=== PATIENT | female | born 1935 | race Hispanic/Latino ===

== ENCOUNTER 2021-08-05 13:45 | Emergency (ER) | payer OTHER, BC ==
--- OUTSIDE RECORDS SUMMARY | 2021-08-05 13:50 | XMS REPORT | Continuity of Care Document ---
:1935 Author Organization [facility] t Address [facility] [address] Mccoy [address] [place] [id number] Care Team Providers Name Role Phone A_Byrd Attending Clinician Unavailable Hawkins_M Attending Clinician Unavailable A_Byrd Admitting Clinician Unavailable Hawkins_M Admitting Clinician Unavailable Payers Payer Name Policy Type Policy Number Effective Date Expiration Date S luisa [place] [id number] 1999 [employer] 00:00:00 [place] [facility] [id number] 2015-08-13 EMPLOYEE PROGRAM 00:00:00 [place]: [id number] 1999-08-13 [place] 00:00:00 FORMERLY [facility] [place] [id number] 2015-08-13 [place] (PP[place]) 00:00:00 Problems Condition Condition Condition Status Onset Resolution Last Treating Co mments Source Name Details Category Date Date Treatment Clinician Date Hypothyroi Hypothyroi Problem Active [facility] 9-16 da 00:00: Medical 00 Group Allergies, Adverse Reactions, Alerts Allergy Allergy Status Severity Reaction(s) Onset Inactive Treating Comm ents Source Name Type Date Date Clinician Peanut Allergy Active [place] Social History Smoking Status Start Date Stop Date Source Never Smoker [facility] Medications Ordered Filled Start Stop Current Ordering Indication Dosage Frequency Signature Comments Components Source Medication Medication Date Date Medication? Clinician (SIG) Name Name levothyroxi levothyroxi No 1 Q2D levothyrox [place] [facility] 25 mcg ne 25 mcg ine 25 mcg da tablet Take tablet Take tablet Medical 1 tablet 1 tablet Take 1 Group every other every other tablet day by oral day by oral every route. route. other day by oral route. levothyroxi levothyroxi No 1 Q2D levothyrox [place] [facility] 50 mcg ne 50 mcg ine 50 mcg da tablet Take tablet Take tablet Medical 1 tablet 1 tablet Take 1 Group every other every other tablet day by oral day by oral every route. route. other day by oral route. Vital Signs Vital Name Observation Time Observation Value Comments Source BP Diastolic 2021-04-28 00:00:00 57 mm[Hg] [facility] BP Systolic 2021-04-28 00:00:00 166 mm[Hg] [facility] Body Weight 2021-04-28 00:00:00 1222 [oz_av] [facility] BP Systolic 2021-04-05 00:00:00 151 mm[Hg] [facility] Body Weight 2021-04-05 00:00:00 1248 [oz_av] [facility] BP Diastolic 2021-04-05 00:00:00 58 mm[Hg] [facility] Procedures This patient has no known procedures. Plan of Care Planned Activity Planned Date Details Comments Source Diagnostic Test 2021-04-28 TSH, serum or [facility] Pending 00:00:00 plasma [code = Group TSH, serum or plasma] Future Appointment 2021-10-26 [facility] 00:[facility]:00 [facility] [address], [place] [address] Encounters Start End Encounter Admission Attending Care Care Encounter Source Date/Time Date/Time Type Type Clinicians Facility Department ID 2021-04-28 2021-04-28 Outpatient Srinivasan_Drake [facility] [id number] [facility] 04:02:00 04:02:00 [facility] 2021-04-28 2021-04-28 Santos Juarez MM [place] - [id number] [facility] 00:00:00 00:00:00 MD Drake: [facility] [address] [place] [address] [address], [facility] [address] , Ph. 2021-04-11 2021-04-11 [place] [id number] -2020 [place] 01:01:00 01:01:00 [facility] 2021-04-11 2021-04-11 [place] [id number] -2020 [place] 01:01:00 01:01:00 [facility] 2021-04-05 2021-04-05 Outpatient Hawkins_M MMG MMG [id number] -2020 [place] 05:34:00 05:34:00 [facility] 2021-04-05 2021-04-05 Outpatient Hawkins_M MMG MMG [id number] -2020 [place] 05:34:00 05:34:00 [facility] 2021-04-05 2021-04-05 [place] [id number] -2020 [place] 05:34:00 05:34:00 [facility]25 [facility] 2021-04-05 2021-04-05 Outpatient Hawkins_M MMG MMG [id number] -2020 [place] 05:34:00 05:34:00 [facility]26 [facility] 2021-04-05 2021-04-05 [place] [id number] -2020 [place] 05:34:00 05:34:00 0828 [facility] 2021-04-05 2021-04-05 [facility] [place] - [id number] [facility] 00:00:00 00:00:00 [facility] [employer]: [address] [facility] [facility] [address], [place] [address] , Ph. Results Test Description Test Time Test Comments Results Result Comments Source SARS-CoV-2 (COVID-19) RNA [Presence] in Respiratory sp ecimen by 2021-04-08 00:00:00 KRIS with probe detection Test Item Value Reference Range Interpretation Comme nts SARS-CoV-2 (COVID-19) RNA [Presence] in Respiratory not detected no t detected specimen by KRIS with probe detection (test code = 81455-8) [facility]Presence] in Respiratory specimen by KRIS with probe [id number] 00:00:00 Test Item Value Reference Range Interpretation Comments SARS-CoV-2 (COVID-19) RNA not detected not detected [Presence] in Respiratory specimen by KRIS with probe detection (test code = 86736-4) [facility]
--- NOTE | 2021-08-05 17:02 | EDPHYS ---
Physician Documentation [facility] Name: Melania Khan Age: 85 yrs Sex: Female : 1935 Arrival Date: 08/05/2021 Time: 13:52 Bed DIS2 Private MD: Lynda Bazan ED Physician Lynda Gutiérrez HPI: 08/05 16:56 This 85 yrs old Female presents to ER via Ambulatory with complaints of Hand jr8 Injury. 16:56 Associated signs and symptoms: The patient has no apparent associated signs or jr8 symptoms. Severity of symptoms: At their worst the symptoms were very mild, in the emergency department the symptoms are unchanged. The patient has not experienced similar symptoms in the past. The patient has not recently seen a physician. Patient stated that she was cleaning her bird cage. Her bird tried to bite her. Withdrew her hand quickly out of the cage causing her to hit left wrist. Has had bruising with hematoma since incident. Historical: - Allergies: 14:03 Peanuts; ss - Immunization history:: Client reports receiving the 2nd dose of the Covid vaccine. - Social history:: Smoking status: Patient denies any tobacco usage or history of. ROS: 16:59 Eyes: Negative for injury, pain, redness, and discharge, ENT: Negative for injury, jr8 pain, and discharge, Neck: Negative for injury, pain, and swelling, Cardiovascular: Negative for chest pain, palpitations, and edema, Respiratory: Negative for shortness of breath, cough, wheezing, and pleuritic chest pain, Abdomen/GI: Negative for abdominal pain, nausea, vomiting, diarrhea, and constipation, Back: Negative for injury and pain, Skin: Negative for injury, rash, and discoloration, Neuro: Negative for headache, weakness, numbness, tingling, and seizure. 16:59 MS/extremity: Positive for ecchymosis, of the right hand and wrist. Exam: 16:59 Constitutional: This is a well developed, well nourished patient who is awake, alert, jr8 and in no acute distress. Cardiovascular: Regular rate and rhythm with a normal S1 and S2. No gallops, murmurs, or rubs. Normal PMI, no JVD. No pulse deficits. Respiratory: Lungs have equal breath sounds bilaterally, clear to auscultation and percussion. No rales, rhonchi or wheezes noted. No increased work of breathing, no retractions or nasal flaring. Skin: Warm, dry with normal turgor. Normal color with no rashes, no lesions, and no evidence of cellulitis. Neuro: Awake and alert, GCS 15, oriented to person, place, time, and situation. Cranial nerves II-XII grossly intact. Motor strength 5/5 in all extremities. Sensory grossly intact. 16:59 Musculoskeletal/extremity: Extremities: grossly normal except: noted in the right hand and wrist: Patient has small hematoma to the medial wrist with bruising extending up the side of the hand and down the wrist. Patient has full ROM present without pain to palpation or movement. Pulses 2+ radial with normal sensation . Vital Signs: 14:00 BP 143 / 52; Pulse 57; Resp 16; Temp 97.6(TE); Pulse Ox 99% on R/A; Weight 36.29 kg; ss Height 4 ft. 10 in. (147.32 cm); Pain 0/10; 17:20 BP 176 / 68; Pulse 54; Resp 16; Pulse Ox 99% ; ll1 14:00 Body Mass Index 16.72 (36.29 kg, 147.32 cm) ss MDM: 16:14 Patient medically screened. jr8 16:59 Data reviewed: vital signs, nurses notes, and as a result, I will discharge patient. jr8 Data interpreted: Pulse oximetry: on room air is 99 %. Interpretation: normal. Counseling: I had a detailed discussion with the patient and/or guardian regarding: the historical points, exam findings, and any diagnostic results supporting the discharge/admit diagnosis, the need for outpatient follow up, a family practitioner, to return to the emergency department if symptoms worsen or persist or if there are any questions or concerns that arise at home. ED course: Discussed with patient that there is no need for imaging based on mechanism and physical exam findings. Patient good with this and will f/u with PCP if needed . Administered Medications: No medications were administered Disposition Summary: 08/05/21 17:02 Discharge Ordered Location: Home jr8 Problem: new jr8 Symptoms: have improved jr8 Condition: Stable jr8 Diagnosis - Contusion of right wrist jr8 Followup: jr8 - With: Private Physician - When: As needed - Reason: Recheck today's complaints, Continuance of care, Re-evaluation by your physician Discharge Instructions: - Discharge Summary Sheet jr8 - Contusion jr8 Forms: - Medication Reconciliation Form jr8 - Thank You Letter jr8 - Antibiotic Education jr8 - Prescription Opioid Use jr8 Addendum: 08/07/2021 18:50 Co-signature as Attending Physician, Lynda Gutiérrez MD. m a2 Signatures: Sanam Argueta RN RN ss Osbaldo Dodson PA PA jr8 Lynda Gutiérrez MD MD ma2
--- NOTE | 2021-08-05 17:02 | ER ---
Nurse's Notes [facility] Name: Melania Khan Age: 85 yrs Sex: Female : 1935 Arrival Date: 08/05/2021 Time: 13:52 Bed DIS2 Private MD: Lynda Bazan Diagnosis: Contusion of right wrist Presentation: 08/05 14:00 Chief complaint: Patient states: Hit R hand on a bird cage yesterday. Pt denies pain, ss but is concerned because she has bruising. Coronavirus screen: Client denies travel out of the [place] in the last 14 days. Ebola Screen: Patient denies exposure to infectious person. Patient denies travel to an Ebola-affected area in the 21 days before illness onset. Initial Sepsis Screen: Does the patient meet any 2 criteria? No. Patient's initial sepsis screen is negative. Does the patient have a suspected source of infection? No. Patient's initial sepsis screen is negative. Risk Assessment: Do you want to hurt yourself or someone else? Patient reports no desire to harm self or others. Onset of symptoms was August 04, 2021. 14:00 Method Of Arrival: Ambulatory ss 14:00 Acuity: DEA 5 ss Triage Assessment: 16:36 General: Appears in no apparent distress. Behavior is calm, cooperative, appropriate ll1 for age. Injury Description: Bruise. Historical: - Allergies: 14:03 Peanuts; ss - Immunization history:: Client reports receiving the 2nd dose of the Covid vaccine. - Social history:: Smoking status: Patient denies any tobacco usage or history of. Screenin:36 Abuse screen: Denies threats or abuse. Nutritional screening: No deficits noted. ll1 Tuberculosis screening: No symptoms or risk factors identified. Fall Risk Ambulatory Aid- Crutches/Cane/Walker (15 pts). Total Howard Fall Scale indicates No Risk (0-24 pts). Assessment: 16:35 General: Appears in no apparent distress. Behavior is calm, cooperative, appropriate ll1 for age. Pain: Denies pain. Derm: Bruising that is on right hand Reports bruise R hand. Musculoskeletal: Circulation, motion, and sensation intact. Capillary refill < 3 seconds, Range of motion: intact in all extremities, Tenderness present in right hand Reports pain in right hand. 17:21 Reassessment: No changes from previously documented assessment. Patient and/or family ll1 updated on plan of care and expected duration. Pain level reassessed. Patient is alert, oriented x 3, equal unlabored respirations, skin warm/dry/pink. Vital Signs: 14:00 BP 143 / 52; Pulse 57; Resp 16; Temp 97.6(TE); Pulse Ox 99% on R/A; Weight 36.29 kg; Height 4 ft. 10 in. (147.32 cm); Pain 0/10; 17:20 BP 176 / 68; Pulse 54; Resp 16; Pulse Ox 99% ; ll1 14:00 Body Mass Index 16.72 (36.29 kg, 147.32 cm) ED Course: 13:52 Patient arrived in ED. mr 13:52 Lynda Bazan MD is Private Physician. mr 14:03 Triage completed. ss 14:03 Arm band placed on right wrist. ss 16:11 Patient placed in an exam room, on a stretcher. ll1 16:14 [facility]bal[facility] Dodson [facility] 16:14 Lynda Gutiérrez MD is Attending Physician. jr8 16:35 Kamini Logan RN is Primary Nurse. ll1 16:36 Patient has correct armband on for positive identification. Bed in low position. Call ll1 light in reach. Side rails up X 1. Cardiac monitoring not applicable on this patient. 16:36 No provider procedures requiring assistance completed. Patient did not have IV access ll1 during this emergency room visit. Administered Medications: No medications were administered Outcome: 17:02 Discharge ordered by . [facility] 17:21 Discharged to home ambulatory. ll1 17:21 Condition: stable 17:21 Discharge instructions given to patient, Instructed on discharge instructions, follow up and referral plans. Demonstrated understanding of instructions, follow-up care. 17:22 Patient left the ED. ll1 Signatures: Danii Rodriguez mr Sanam Argueta, JT WATERS Osbaldo Dodson PA PA jr8 Kamini Logan RN RN ll1
[2021-08-05 17:26] VITALS: TEMP 97.6; O2SAT 99
[2021-08-05 17:28] VITALS: BP 176/68
== END 2021-08-05 17:22 | disposition home or self-care (01) ==
LOC: ER 13:45
DX: S60.211A Contusion of right wrist, initial encounter (principal); W22.8XXA Striking against or struck by other objects, initial encounter; Z91.010 Allergy to peanuts
CPT/HCPCS: 99281

== ENCOUNTER 2022-09-14 18:12 | Emergency (ER) | payer OTHER, BC ==
--- OUTSIDE RECORDS SUMMARY | 2022-09-14 18:22 | XMS REPORT | Continuity of Care Document ---
:1935 Author Organization [facility] t Address [address] [place] [address] [address] [place] [address] Care Team Providers Name Role Phone Asked, No Pcp Primary Care Physician Unavailable Deepak SAMPSON, Ton Martin Attending Clinician [phone] Kobjla_A Attending Clinician Unavailable A_Byrd Attending Clinician Unavailable Hawperri_M Attending Clinician Unavailable Kobjla_A Admitting Clinician Unavailable A_Byrd Admitting Clinician Unavailable Lele_M Admitting Clinician Unavailable Payers Payer Name Policy Type Policy Number Effective Date Expiration Date S luisa [place] [id number] 1999 [employer] 00:00:00 [place] [id number] 2015 EMPLOYEE PROGRAM 00:00:00 [place] [id number] 1999 [employer] 00:00:00 [facility] [place] [id number] 2015 [place] (PPO) 00:00:00 Problems Condition Condition Condition Status Onset Resolution Last Treating Co mments Source Name Details Category Date Date Treatment Clinician Date Hypertensi Hypertensi Disease Active 2022-0 M ethodi on on 11-28 st 00:00: Hospita 00 l Hyperthyro Hyperthyro Disease Active M ethodi idism idism 11-28 st 00:00: Hospita 00 l Subclinica Subclinica Problem Active [facility] [facility] l 9-17 da hyperthyro Hyperthyro 00:00: Me dical idism idism 00 Group Hypothyroi Hypothyroi Problem Active [facility] dism dism 9-16 da 00:00: Medical 00 Group Allergies, Adverse Reactions, Alerts Allergy Allergy Status Severity Reaction(s) Onset Inactive Treating Comm ents Source Name Type Date Date Clinician Peanut Propensi Active Itching Facial Methodi ty to 11-[address] adverse 00:00: Hospita reaction 00 l s to drug Peanut Allergy Active [place] to [facility] substanc [facility] e Group Social History Social Habit Start Date Stop Date Quantity Comments Source History of Light tobacco Scientologist tobacco use smoker Hospital Tobacco use and 2021-11-28 2021-11-28 Smokeless tobacco Me thodist exposure 00:00:00 00:00:00 non-user Hospital Alcohol intake 2021-11-28 2021-11-28 Lifetime Scientologist 00:00:00 00:00:00 non-drinker Hospital (finding) Sex Ass[birth year] At [birth year] Scientologist 00:00:00 00:00:00 Hospital Smoking Status Start Date Stop Date Source Never Smoker [facility] Light tobacco smoker 2021-11-28 00:00:00 [facility] Medications Ordered Filled Start Stop Current Ordering Indication Dosage Frequency Signature Comments Components Source Medication Medication Date Date Medication? Clinician (SIG) Name Name levothyroxi Yes 25ug Take 25 Met hodi ne 4-[address] (SYNTHROID) 19:59: mouth. Hosp angelica 25 mcg 03 l tablet amlodipine amlodipine No amlodipine [place] 2.5 mg 2.5 mg 2.5 mg da tablet tablet tablet Medical Group benzonatate benzonatate No 1capsul Q7H benzonatat [place] 100 mg 100 mg e(s) e 100 mg da capsule capsule capsule Medica l Take 1 Take 1 Take 1 Group capsule capsule capsule every 6-8 every 6-8 every 6-8 hours by hours by hours by oral route oral route oral route as needed. as needed. as needed. levothyroxi levothyroxi No levothyrox [place] ne 25 mcg ne 25 mcg ine 25 mcg da tablet TAKE tablet TAKE tablet Medical 1 TABLET 1 TABLET TAKE 1 Group EVERY OTHER EVERY OTHER TABLET DAY BY ORAL DAY BY ORAL EVERY ROUTE. ROUTE. OTHER DAY BY ORAL ROUTE. levothyroxi levothyroxi No levothyrox [place] ne 50 mcg ne 50 mcg ine 50 mcg da tablet TAKE tablet TAKE tablet Medical 1 TABLET 1 TABLET TAKE 1 Group EVERY OTHER EVERY OTHER TABLET DAY BY ORAL DAY BY ORAL EVERY ROUTE. ROUTE. OTHER DAY BY ORAL ROUTE. molnupiravi molnupiravi No 4capsul Q12H molnupirav [place] r 200 mg r 200 mg e(s) ir 200 mg da capsule capsule capsule Medica l (EUA) Take (EUA) Take (EUA) Take Group 4 capsules 4 capsules 4 capsules every 12 every 12 every 12 hours by hours by hours by oral route oral route oral route for 5 days. for 5 days. for 5 days. Xofluza 40 Xofluza 40 No 1 Q1D Xofluza 40 [place] mg tablet mg tablet mg tablet da Take 1 Take 1 Take 1 Medical tablet tablet tablet Group every day every day every day by oral by oral by oral route. 1 route. 1 route. 1 tab x 1. tab x 1. tab x 1. Zithromax Zithromax No Zithromax [place] Z-Ikrk 250 Z-Kirk 250 Z-Kirk 250 da mg tablet mg tablet mg tablet Medical TAKE 2 TAKE 2 TAKE 2 Group TABLETS TABLETS TABLETS (500 MG) BY (500 MG) BY (500 MG) ORAL ROUTE ORAL ROUTE BY ORAL ONCE DAILY ONCE DAILY ROUTE ONCE FOR 1 DAY FOR 1 DAY DAILY FOR THEN 1 THEN 1 1 DAY THEN TABLET (250 TABLET (250 1 TABLET MG) BY ORAL MG) BY ORAL (250 MG) ROUTE ONCE ROUTE ONCE BY ORAL DAILY FOR 4 DAILY FOR 4 ROUTE ONCE DAYS DAYS DAILY FOR 4 DAYS Vital Signs Vital Name Observation Time Observation Value Comments Source Body Weight 2021-08-26 00:00:00 1280 [oz_av] [facility] BP Diastolic 2021-04-28 00:00:00 57 mm[Hg] [facility] BP Systolic 2021-04-28 00:00:00 166 mm[Hg] [facility] Body Weight 2021-04-28 00:00:00 1222 [oz_av] [facility] BP Systolic 2021-04-05 00:00:00 151 mm[Hg] [facility] Body Weight 2021-04-05 00:00:00 1248 [oz_av] [facility] BP Diastolic 2021-04-05 00:00:00 58 mm[Hg[facility] Systolic blood 2021-11-29 00:57:00 138 mm[Hg] [facility] pressure Diastolic blood 2021-11-29 00:57:00 81 mm[Hg] [facility] pressure Heart rate 2021-11-29 00:57:00 61 /min [facility] Body temperature 2021-11-29 00:57:00 36.5 Mitzi [facility] Respiratory rate 2021-11-29 00:57:00 17 /min [facility] Oxygen saturation in 2021-11-29 00:57:00 99 /min [facility] Arterial blood by Pulse oximetry Body height 2021-11-28 22:48:19 149.9 cm [facility] Body weight 2021-11-28 22:48:19 36.288 kg [facility] BMI 2021-11-28 22:48:19 16.16 kg/m2 [facility] Procedures Procedure Date / Time Performing Clinician Source Performed ECG ED PRELIMINARY 2021-11-29 00:35:34 Ton Soteol [facility] INTERPRETATION [place] XR CHEST 2 VW 2021-11-28 23:31:00 [facility] COMPREHENSIVE METABOLIC 2021-11-28 23:18[facility] PANEL CREATINE KINASE, TOTAL 2021-11-28 23:18:00 [facility] (CPK) TROPONIN, I-STAT 2021-11-28 23:18:00 [facility] B NATRIURETIC PEP, I-STAT 2021-11-28 23:18:00 [facility] ESTIMATED GFR 2021-11-28 23:18:00 Rasheed Herring [facility] CBC WITH PLATELET AND 2021-11-28 23:18:00 Rasheed Herring [facility] DIFFERENTIAL ECG 12-LEAD 2021-11-28 22:51:11 Ton Sotelo [facility] Plan of Care Planned Activity Planned Date Details Comments Source Future Scheduled 2022-07-25 COVID-19 VACCINE (#1) [facility] Test 09:26:08 [code = COVID-19 VACCINE (#1)] Future Scheduled 2022-07-25 65+ P[facility]UMOCOCCAL [facility] Test 09:26:08 VACCINE (1 - PCV) [code = 65+ PNEUMOCOCCAL VACCINE (1 - PCV)] Future Scheduled 2022-07-25 SHINGLES VACCINES (1 Met [facility] Test 09:26:08 of 2) [code = SHINGLES VACCINES (1 of 2)] Future Scheduled 2022-07-25 INFLUENZA VACCINE Method [facility] Test 09:26:08 [code = INFLUENZA VACCINE] Diagnostic Test 2021-08-26 rapid influenza virus Mat [facility] Pending 00:00:00 A + B and SARS CoV + Group SARS CoV 2 Ag panel, IA, upper respiratory specimen [code = rapid influenza virus A + B and SARS CoV + SARS CoV 2 Ag panel, IA, upper respiratory specimen] Encounters Start End Encounter Admission Attending Care Care Encounter Source Date/Time Date/Time Type Type Clinicians Facility Department ID 2021-11-28 2021-11-28 Emergency Deepak, [id number] [facility] 17:43:00 19:59:[address] [facility] 3.430.2.7 Ho spita .[id number] l .8 2021-11-28 2021-11-28 Emergency DEEPAK [facility] 064 [id number] [place] 00:00:00 00:00:[address] 2021-11-28 2021-11-28 Travel [id number] [facility] 00:00:00 00:00:[address] 3.430.2.7 0.2.7.3.698 Ho spita .3.027178 084.8 l .8 2021-08-31 2021-08-31 Outpatient Shi_A [facility] [id number] [place] 10:48:00 10:48:00 0119 Medical Group 2021-08-26 2021-08-26 Taylor Shi_[place] [facility] - [id number] [place] 00:00:00 00:00:00 Discovery Shi 0114 da PA-C: [address] [place] [phone] , Ph. 2021-04-28 2021-04-28 Nelli [place] [facility] [place] - [id number] [place] 00:00:00 00:00:00 MD Drake: [address] [place] [phone] , Ph. 2021-04-11 2021-04-11 Outpatient Radha [facility] [id number] [place] 01:01:00 01:01:00 0830 [facility] 2021-04-05 2021-04-05 Jessica Royal_R[place] - [id number] [place] 00:00:00 00:00:00 Jackie Oneill 0824 [facility]nie [facility]PART[facility] PREPARER: [address] [place] [phone] , Ph. Results Test Description Test Time Test Comments Results Result Comments Source ECG 12 lead 2021-11-29 16:48:03 Test Item Value Reference Range Interpretation Comme nts Ventricular rate (test code = 253) 68 Atrial rate (test code = 255) 68 ND interval (test code = 266) 176 QRSD interval (test code = 260) 76 QT interval (test code = 264) 402 QTC interval (test code = 265) 427 P axis 1 (test code = 267) 54 QRS axis 1 (test code = 268) 47 T wave axis (test code = 270) 71 EKG impression (test code = 273) Normal sinus rhythm with sinus arrhythmia-Normal ECG-No previous ECGs available- Artis FarrARS-CoV-2 (COVID-19) RNA [Presence] in Respiratory specimen by KRIS with probe [id number] 00:00:00 Test Item Value Reference Range Interpretation Comments SARS-CoV-2 (COVID-19) RNA not detected not detected [Presence] in Respiratory specimen by KRIS with probe detection (test code = 89467-5) [facility] [Presence] in Respiratory specimen by KRIS with probe [id number] 00:00:00 Test Item Value Reference Range Interpretation Comments SARS-CoV-2 (COVID-19) RNA not detected not detected [Presence] in Respiratory specimen by KRIS with probe detection (test code = 22377-4) [facility]
[2022-09-14] MEDS ORDERED: ASPIRIN 81 MG CHEWABLE TABLET ONE (18:41)
[2022-09-14 18:49] LABS: Absolute Lymphocytes (CBC) 2.3 K/uL (0.7-4.9); Hematocrit 33.7 % (36.0-45.0); Lymphocytes % 29.6 % (15.3-44.8); MCV 91.6 fL (80-100); MPV 8.4 fL (7.6-11.3); RBC Red Blood Cell Count 3.67 M/uL (3.86-4.86)
--- NOTE | 2022-09-14 18:57 | RAD REPORT ---
EXAM DESCRIPTION: RAD - Chest Single View - 09/14/2022 6:52 pm CLINICAL HISTORY: CHEST PAIN Chest pain. COMPARISON: No comparisons FINDINGS: Portable technique limits examination quality. The lungs are mildly emphysematous but grossly clear. The heart is mildly prominent in size. No displ aced fractures.Aortic atherosclerosis. IMPRESSION: No acute intrathoracic process suspected.
[2022-09-14 19:02] LABS: Protime INR 0.96
[2022-09-14 19:09] LABS: Magnesium 2.2 mg/dL (1.6-2.4); Potassium 3.8 mmol/L (3.5-5.1); Troponin High Sensitivity 9.9 pg/mL (<58.9)
[2022-09-14 19:51] LABS: Urine Blood Trace-intact (Negative); Urine Glucose Negative (Negative); Urine Protein Negative (Negative)
--- NOTE | 2022-09-14 21:57 | EDPHYS ---
Physician Documentation [facility] Name: Melania Khan Age: 87 yrs Sex: Female : 1935 Arrival Date: 09/14/2022 Time: 18:13 Bed 19 Private MD: Srinivasan Gibson C ED Physician Ed Armendariz HPI: 09/14 19:52 This 87 yrs old Female presents to ER via Wheelchair with complaints of Chest kb Pain, High Blood Pressure. 19:52 The patient has not experienced similar symptoms in the past. The patient has not kb recently seen a physician. Patient reports chest pressure to the left side for about 3 days. Son states he brought her in today because her diastolic blood pressure was 47 and he was told if it is less than 50 then needed to be seen. Blood pressure at home was 172/47. Patient denies shortness of breath, nausea, vomiting, headache, dizziness. Pain has no alleviating or aggravating factors. Patient states she tries to just keep busy so she does not think about the pressure.. Historical: - Allergies: 18:18 peanuts; ll1 - PMHx: 18:18 Hypothyroidism; Hypertensive disorder; ll1 - Immunization history:: Client reports receiving the 2nd dose of the Covid vaccine. - Social history:: Smoking status: Patient denies any tobacco usage or history of. ROS: 19:57 Constitutional: Negative for fever, chills, and weight loss. kb 19:57 Cardiovascular: Positive for chest pain, Negative for edema, orthopnea, palpitations, paroxysmal nocturnal dyspnea. 19:57 All other systems are negative. Exam: 19:57 Constitutional: This is a well developed, well nourished patient who is awake, alert, kb and in no acute distress. Head/Face: Normocephalic, atraumatic. ENT: Moist Mucous membranes Cardiovascular: Regular rate and rhythm with a normal S1 and S2. No gallops, murmurs, or rubs. No pulse deficits. Respiratory: Respirations even and unlabored. No increased work of breathing. Talking in full sentences Abdomen/GI: Soft, non-tender. No distention Skin: Warm, dry with normal turgor. Normal color. MS/ Extremity: Pulses equal, no cyanosis. Neurovascular intact. Full, normal range of motion. Neuro: Awake and alert, GCS 15, oriented to person, place, time, and situation. Moves all extremities. Normal gait. Psych: Awake, alert, with orientation to person, place and time. Behavior, mood, and affect are within normal limits. Vital Signs: 18:17 BP 150 / 57; Pulse 67; Resp 17; Temp 97.9; Pulse Ox 100% ; Weight 36.29 kg; Height 4 ll1 ft. 11 in. (149.86 cm); Pain 5/10; 18:30 BP 162 / 61; Pulse 64; Resp 18; Pulse Ox 96% on R/A; db 19:35 BP 159 / 62; Pulse 67; Resp 15 S; Pulse Ox 95% on R/A; ha1 20:30 BP 153 / 79; Pulse 68; Resp 15 S; Pulse Ox 100% on R/A; ha1 21:30 BP 156 / 56; Pulse 63; Resp 17 S; Pulse Ox 96% on R/A; ha1 22:30 BP 152 / 56; Pulse 63; Resp 15 S; Pulse Ox 99% on R/A; Pain 0/10; ha1 18:17 Body Mass Index 16.16 (36.29 kg, 149.86 cm) ll1 MDM: 18:21 Patient medically screened. kb 19:52 Data reviewed: vital signs, nurses notes. kb 19:54 Differential diagnosis: abnormal EKG, acute myocardial infarction, anxiety, coronary kb artery disease chest wall pain. The patient was given aspirin in the Emergency Department. Consideration of Admission/Observation Escalation of care including admission/observation considered. Management of patient was discussed with the following: Primary Care Provider: Dr. Gibson consulted regarding patient condition. Dr. Gibson in agreement with outpatient follow-up as long as second troponin remains normal.. Independent interpretation of the following test(s) in the Emergency Department EKG: See my EKG interpretation above. Historians other than the Patient: Daughter/Son: Son. Care significantly affected by the following chronic conditions: Hypertension. Scoring Tools HEART Score: History: Age: Total Score = 3. Counseling: I had a detailed discussion with the patient and/or guardian regarding: the historical points, exam findings, and any diagnostic results supporting the discharge/admit diagnosis, lab results, radiology results, the need for outpatient follow up, a oleomargarine maker, a family practitioner, to return to the emergency department if symptoms worsen or persist or if there are any questions or concerns that arise at home. Transition of care: After a detail discussion of the patient's case, [facility] course: Patient has a follow-up appoint with Dr. Knight on October 04 for routine evaluation.. ED course: Discussed plan of care with patient and son who are in agreement. Will repeat troponin at 2130. If negative patient can go home to follow-up on outpatient basis.. 09/14 18:21 Order name: Basic Metabolic Panel; Complete Time: 19:12 kb 09/14 18:21 Order name: CBC with Diff; Complete Time: 18:56 kb 09/14 18:21 Order name: Magnesium; Complete Time: 19:12 kb 09/14 18:21 Order name: NT PRO-BNP; Complete Time: 19:12 kb 09/14 18:21 Order name: PT-INR; Complete Time: 19:02 kb 09/14 18:21 Order name: Troponin HS; Complete Time: 19:12 kb 09/14 18:21 Order name: XRAY Chest (1 view); Complete Time: 19:01 kb 09/14 18:21 Order name: EKG; Complete Time: 18:22 kb 09/14 18:21 Order name: Cardiac monitoring; Complete Time: 18:35 kb 09/14 18:21 Order name: EKG - Nurse/Tech; Complete Time: 18:35 kb 09/14 18:21 Order name: IV Saline Lock; Complete Time: 18:35 kb 09/14 19:51 Order name: Urine Dipstick-Ancillary; Complete Time: 19:52 EDMS 09/14 19:58 Order name: Troponin HS: draw at 2130; Complete Time: 21:54 kb 09/14 18:21 Order name: Labs collected and sent; Complete Time: 18:35 kb 09/14 18:21 Order name: O2 Per Protocol; Complete Time: 18:35 kb 09/14 18:21 Order name: O2 Sat Monitoring; Complete Time: 18:35 kb 09/14 19:24 Order name: Urine Dipstick-Ancillary (obtain specimen); Complete Time: 19:54 kb Administered Medications: 18:41 Drug: Aspirin Chewable Tablet 324 mg Route: PO; db 19:20 Follow up: Response: No adverse reaction ha1 Disposition Summary: 09/14/22 21:56 Discharge Ordered Location: Home snw Condition: Stable snw Diagnosis - Chest pain, unspecified snw Followup: snw - With: Emergency Department - When: As needed - Reason: Worsening of condition Followup: snw - With: Srinivasan Gibson MD - When: 1 week - Reason: Recheck today's complaints, Continuance of care, Re-evaluation by your physician Discharge Instructions: - Discharge Summary Sheet snw - Nonspecific Chest Pain, Adult snw - Confusion snw - Form - Blood Pressure Record Sheet snw Forms: - Medication Reconciliation Form snw - Thank You Letter snw - Antibiotic Education snw - Prescription Opioid Use snw Signatures: Dispatcher [employer] EDMS Brenda Lundy, SPRAYER OPERATOR-C SPRAYER OPERATOR-Ckb Kisha Berumen FNP-C SPRAYER OPERATOR-CsnKamini Chavez RN RN ll1 Mikki Rueda RN RN db Karine Curry RN ha1
--- NOTE | 2022-09-14 21:57 | ER ---
Nurse's Notes [facility] Name: Melania Khan Age: 87 yrs Sex: Female : 1935 Arrival Date: 09/14/2022 Time: 18:13 Bed 19 Private MD: Srinivasan Gibson C Diagnosis: Chest pain, unspecified Presentation: 09/14 18:17 Chief complaint: Patient states: CP and high BP for 1 day. Coronavirus screen: Client ll1 denies travel out of the [place] in the last 14 days. At this time, the client does not indicate any symptoms associated with coronavirus-19. Ebola Screen: Patient denies travel to an Ebola-affected area in the 21 days before illness onset. Initial Sepsis Screen: Does the patient meet any 2 criteria? No. Patient's initial sepsis screen is negative. Risk Assessment: Do you want to hurt yourself or someone else? Patient reports no desire to harm self or others. Onset of symptoms was September 14, 2022. 18:17 Method Of Arrival: Wheelchair ll1 18:17 Acuity: DEA 3 ll1 19:20 Initial Sepsis Screen: Does the patient have a suspected source of infection? No. ha1 Patient's initial sepsis screen is negative. Triage Assessment: 18:41 General: Appears in no apparent distress. comfortable, Behavior is calm, cooperative. db Pain: Complains of pain in head and chest. Neuro: No deficits noted. Level of Consciousness is awake, alert, obeys commands, Oriented to person, place, time, situation, Speech is normal. Cardiovascular: Reports chest pain. Historical: - Allergies: 18:18 peanuts; ll1 - PMHx: 18:18 Hypothyroidism; Hypertensive disorder; ll1 - Immunization history:: Client reports receiving the 2nd dose of the Covid vaccine. - Social history:: Smoking status: Patient denies any tobacco usage or history of. Screenin:07 [facility] ED Fall Risk Assessment (Adult) History of falling in the last 3 months, db including since admission No falls in past 3 months (0 pts) Confusion or Disorientation No (0 pts) Intoxicated or Sedated No (0 pts) Impaired Gait No (0 pts) Mobility Assist Device Used No (0 pt) Altered Elimination No (0 pt) Score/Fall Risk Level 0 - 2 = Low Risk Oriented to surroundings, Maintained a safe environment. Abuse screen: Denies threats or abuse. Denies injuries from another. Nutritional screening: No deficits noted. Tuberculosis screening: No symptoms or risk factors identified. Assessment: 18:30 Reassessment: Patient appears in no apparent distress at this time. Patient and/or db family updated on plan of care and expected duration. Pain level reassessed. patient reports chest pain and right side head pain. Pain: Pain does not radiate. Pain began gradually. 19:35 General: Appears comfortable, Behavior is calm, cooperative. Pain: Complains of pain in ha1 chest Pain does not radiate. Pain currently is 3 out of 10 on a pain scale. Quality of pain is described as pressure, Pain began gradually, Is intermittent. Neuro: Level of Consciousness is awake, alert, obeys commands. Neuro: Oriented to person, place, time, situation. Cardiovascular: Capillary refill < 3 seconds Patient's skin is warm and dry. Respiratory: Airway is patent Respiratory effort is even, unlabored, Respiratory pattern is regular, symmetrical. GI: Abdomen is flat, non-distended. : Urine is clear. Derm: Skin is fragile, Skin is dry, Skin is normal. Musculoskeletal: Circulation, motion, and sensation intact. 20:30 Reassessment: Patient and/or family updated on plan of care and expected duration. Pain ha1 level reassessed. Patient is alert, oriented x 3, equal unlabored respirations, skin warm/dry/pink. Patient denies pain at this time. Patient states feeling better. 21:30 Reassessment: Patient and/or family updated on plan of care and expected duration. Pain ha1 level reassessed. Patient is alert, oriented x 3, equal unlabored respirations, skin warm/dry/pink. awaiting on lab results Patient denies pain at this time. 22:30 Reassessment: Patient and/or family updated on plan of care and expected duration. Pain ha1 level reassessed. Patient is alert, oriented x 3, equal unlabored respirations, skin warm/dry/pink. getting discharged. occasional caregiver states " I want her to get admitted and I need to talk to a doctor because she can not go home". Notified care provider Patient denies pain at this time. Patient states feeling better. 22:35 Reassessment: Care provider States " lab results and vital signs do show an indication ha1 for need to admit the patient". 22:40 Reassessment: patient landcare officer screaming and yelling at nurse. Charge nurse talking ha1 to the landcare officer. occasional caregiver states " I do not care a word of what you are saying, I want her admitted into the hospital". it was explained the lab result. Vital Signs: 18:17 BP 150 / 57; Pulse 67; Resp 17; Temp 97.9; Pulse Ox 100% ; Weight 36.29 kg; Height 4 ll1 ft. 11 in. (149.86 cm); Pain 5/10; 18:30 BP 162 / 61; Pulse 64; Resp 18; Pulse Ox 96% on R/A; db 19:35 BP 159 / 62; Pulse 67; Resp 15 S; Pulse Ox 95% on R/A; ha1 20:30 BP 153 / 79; Pulse 68; Resp 15 S; Pulse Ox 100% on R/A; ha1 21:30 BP 156 / 56; Pulse 63; Resp 17 S; Pulse Ox 96% on R/A; ha1 22:30 BP 152 / 56; Pulse 63; Resp 15 S; Pulse Ox 99% on R/A; Pain 0/10; ha1 18:17 Body Mass Index 16.16 (36.29 kg, 149.86 cm) ll1 Vitals: 18:30 Cardiac Rhythm Assessment Regular Sinus rhythm. db ED Course: 18:13 Patient arrived in ED. rg4 18:13 Srinivasan Gibson MD is Private Physician. rg4 18:18 Triage completed. ll1 18:19 Arm band placed on Patient placed in an exam room, on a stretcher. ll1 18:21 Brenda Lundy FNP-C is PHCP. kb 18:21 Ed Armendariz DO is Attending Physician. kb 18:22 Mikki Rueda, JT is Primary Nurse. db 18:40 Inserted saline lock: 20 gauge in right antecubital area, using aseptic technique. db Blood collected. Patient maintains SpO2 saturation greater than 95% on room air. 18:54 XRAY Chest (1 view) In Process Unspecified. EDMS 19:09 No provider procedures requiring assistance completed. db 19:20 Patient has correct armband on for positive identification. Placed in gown. Bed in low ha1 position. Call light in reach. Side rails up X 1. Adult w/ patient. 19:20 Client placed on continuous cardiac and pulse oximetry monitoring. NIBP monitoring ha1 applied. 20:23 PHCP role handed off by Brenda Lundy FNP-C snw 20:23 Kisha Berumen FNP-C is PHCP. snw 21:55 Srinivasan Gibson MD is Referral Physician. snw 22:47 IV discontinued, intact, bleeding controlled, No redness/swelling at site. Pressure ha1 dressing applied. Administered Medications: 18:41 Drug: Aspirin Chewable Tablet 324 mg Route: PO; db 19:20 Follow up: Response: No adverse reaction ha1 Medication: 22:47 VIS not applicable for this client. ha1 Outcome: 21:56 Discharge ordered by . snw 22:47 Patient left the ED. ha1 22:47 Discharged to home via wheelchair, with family. ha1 22:47 Condition: stable ha1 22:47 Discharge instructions given to patient, family, Instructed on discharge instructions, follow up and referral plans. Demonstrated understanding of instructions, follow-up care. Signatures: Dispatcher [employer] EDMS Brenda Lundy FNP-C FNP-CkKisha Barrera FNP-C FNP-Csnw Monalisa Ramírez rg4 Kamini Logan RN RN 1 Karine Curry RN RN ha1 Mikki Rueda RN RN db
[2022-09-14 22:51] VITALS: TEMP 97.9
[2022-09-14 22:56] VITALS: BP 156/56; O2SAT 96
== END 2022-09-14 22:47 | disposition home or self-care (01) ==
LOC: ER 18:12
DX: R07.89 Other chest pain (principal); I10 Essential (primary) hypertension; E03.9 Hypothyroidism, unspecified; Z91.010 Allergy to peanuts
CPT/HCPCS: 36415; 71045; 80048; 81003; 83735; 83880; 84484; 85025; 85610; 93005; 99284